=== PATIENT | female | born 1935 | race Caucasian/White ===

== ENCOUNTER 2016-12-15 13:48 | Inpatient (IN) | payer OTHER ==
[~2016-12-15] VITALS: Ht 157.5 cm; Wt 64.5 kg
[~2016-12-15 13:48] MED LIST: ACETAMINOPHEN325 M3 PO; ATIVAN0.5 MG PO; Ambien PO; B-121000 MC2 PO; BISAC-EVAC10 MG PR; CALCIUM 600 +1 EAC9 PO; CALTRATE 6001 TABLE2 PO; CARBIDOPA/LEVO1 EACH PO; CELEBREX200 MG PO; COLACE100 MG PO; CONSTULOSE10 GM/15 M PO; Caltrate 600/400 PO; Colace PO; D5W100 ML IV; Ecotrin PO; FIBER THERAPY0.52 GM PO; FLEET ENEMA-AD118 ML PR; FLEXERIL10 MG PO; Flexeril PO; GABAPENTIN300 MG PO; KEFLEX500 MG PO; LIDODERM 5% P1 PATCH TD; MILK OF MAGN PO; MIRALAX17 GM PO; NACL IV; NAPROXEN500 MG PO; Neurontin PO; OCUVITE TABLET1 EACH PO; OCUVITE1 TABLET PO; OMEPRAZOLE40 M1 PO; OXYBUTYNIN CHLOR5 M1 PO; Ocuvite Tablet PO; PHENERGAN25 MG PR; PRILOSEC40 MG PO; PROMETHAZINE HC25 M1 PO; PriLOSEC PO; RIVASTIGMINE1 EACH TD; SALINE NASAL14.1 GM TP; SENNA PLUS TAB1 EACH PO; SENOKOT S,PE1 TABLET PO; SERTRALINE HCL100 MG PO; SERTRALINE HCL50 MG PO; SINEMET 25-1001 EACH PO; Slow Fe PO; TRAMADOL HCL50 MG PO; Tylenol Regular Stre PO; ULTRAM50 MG PO; Ultram PO; VALIUM2 MG PO; Vicodin,Norco 5/325 PO; Vitamin B-12 PO; ZANAFLEX4 MG PO; ZOFRAN4 MG PO; ZOLOFT50 MG PO; [UNRECOGNIZED DRUG - OTHER] IV
[2016-12-15 15:21] LABS: EOSINOPHIL (%) 0.9 % (0-5); EOSINOPHIL COUNT 0.1 K/uL (0-0.3); HEMATOCRIT 38.9 % (36.0-46.0); IMMATURE GRANULOCYTE (%) 0.3 % (0.0-0.7); INSTRUMENT ABS NEUTROPHIL CT 6.1 K/uL; LYMPHOCYTE COUNT 1.2 K/uL (1.0-2.8); MCH 30.7 PG (29.0-34.0); MCHC 31.9 G/DL (30.0-36.0); MCV 96.3 FL (83-99); MEAN PLAT.VOLUME 9.8 uM^3 (9.5-12.4); MONOCYTE (%) 6.5 % (3-12); MONOCYTE COUNT 0.5 K/uL (0-0.8); NEUTROPHIL (%) 77.4 % (45-76); NEUTROPHIL COUNT 6.1 K/uL (1.8-6.4); PLATELET COUNT 180 K/uL (156-360); RBC DIS.WIDTH-CV 13.3 % (11.8-14.6); RBC DIS.WIDTH-SD 47.4 % (39-53); RED BLOOD COUNT 4.04 M/uL (3.80-5.20); WHITE BLOOD COUNT 7.9 K/uL (4.1-10.2)
[2016-12-15 15:29] LABS: CHLORIDE 108 mEq/L (99-109); POTASSIUM 4.2 mEq/L (3.7-5.4); SODIUM 142 mEq/L (136-147)
[2016-12-15 15:31] LABS: GLUCOSE 107 mg/dL (70-99)
[2016-12-15 15:32] LABS: ANION GAP 8 MEQ/L (2-14)
[2016-12-15 15:34] LABS: GFR ESTIMATE (CALCULATED) > 59 mL/min/
[2016-12-15 15:35] LABS: UREA NITROGEN (BUN) 19 mg/dL (9-23)
[2016-12-15] MEDS ORDERED: OCUVITE TABLET1 EACH PO (20:34)
[2016-12-15] MEDS ORDERED: NEOMYCIN-POLYMY10 M1 RIGHT EAR (20:39)
[2016-12-15] MEDS ORDERED: NEURONTIN300 MG PO (20:41)
[2016-12-15] MEDS ORDERED: DULCOLAX10 MG PR (20:44)
[2016-12-15] MEDS ORDERED: MIRALAX17 GM PO (20:45)
[2016-12-15 22:51] VITALS: BP 123/65
[2016-12-16 04:03] VITALS: BP 103/56
[2016-12-16 07:07] LABS: HEMATOCRIT 36.3 % (36.0-46.0); MCH 30.3 PG (29.0-34.0); MCV 94.8 FL (83-99); MEAN PLAT.VOLUME 10.2 uM^3 (9.5-12.4); PLATELET COUNT 175 K/uL (156-360); RBC DIS.WIDTH-CV 13.4 % (11.8-14.6); RBC DIS.WIDTH-SD 47.5 % (39-53); RED BLOOD COUNT 3.83 M/uL (3.80-5.20)
[2016-12-16 07:18] VITALS: BP 102/55
[2016-12-16 07:29] LABS: ANION GAP 7 MEQ/L (2-14); CHLORIDE 108 MEQ/L (99-109); GFR ESTIMATE (CALCULATED) > 59 mL/min/; GLUCOSE 92 mg/dL (70-99); POTASSIUM 3.7 MEQ/L (3.7-5.4); SAMPLE HEMOLYSIS CHECK 0; SAMPLE ICTERIC CHECK 0; SAMPLE LIPEMIA CHECK 0; SODIUM 142 MEQ/L (136-147); UREA NITROGEN (BUN) 17 mg/dL (9-23)
[2016-12-16 15:57] VITALS: BP 116/67
[2016-12-16 19:32] VITALS: BP 127/69
[2016-12-16 23:39] VITALS: BP 140/75
[2016-12-17] VITALS: BP 124/65
[2016-12-17 03:40] VITALS: BP 132/70
[2016-12-17 07:01] LABS: EOSINOPHIL COUNT 0.1 K/uL (0-0.3); HEMATOCRIT 35.4 % (36.0-46.0); IMMATURE GRANULOCYTE (%) 0.4 % (0.0-0.7); INSTRUMENT ABS NEUTROPHIL CT 3.3 K/uL; LYMPHOCYTE COUNT 1.1 K/uL (1.0-2.8); MCH 30.7 PG (29.0-34.0); MCHC 32.5 G/DL (30.0-36.0); MCV 94.4 FL (83-99); MONOCYTE (%) 7.1 % (3-12); MONOCYTE COUNT 0.4 K/uL (0-0.8); NEUTROPHIL (%) 67.2 % (45-76); NEUTROPHIL COUNT 3.3 K/uL (1.8-6.4); PLATELET COUNT 169 K/uL (156-360); RBC DIS.WIDTH-CV 13.1 % (11.8-14.6); RBC DIS.WIDTH-SD 45.7 % (39-53); RED BLOOD COUNT 3.75 M/uL (3.80-5.20); WHITE BLOOD COUNT 4.9 K/uL (4.1-10.2)
[2016-12-17 07:27] LABS: ANION GAP 8 MEQ/L (2-14); CHLORIDE 107 MEQ/L (99-109); GFR ESTIMATE (CALCULATED) > 59 mL/min/; GLUCOSE 91 mg/dL (70-99); POTASSIUM 3.8 MEQ/L (3.7-5.4); SAMPLE HEMOLYSIS CHECK 0; SAMPLE ICTERIC CHECK 0; SAMPLE LIPEMIA CHECK 0; SODIUM 141 MEQ/L (136-147); UREA NITROGEN (BUN) 16 mg/dL (9-23)
[2016-12-17 07:50] VITALS: BP 140/69
[2016-12-17 15:40] VITALS: BP 147/71
[2016-12-17 17:27] LABS: METH RESISTANT S AUREUS PCR NEGATIVE (NEGATIVE)
[2016-12-17 17:36] LABS: PROBE CHECK PASS; SPECIMEN PROCESSING CONTROL PASS
[2016-12-18 07:17] VITALS: BP 130/66
[2016-12-18] MEDS ORDERED: KEFLEX500 MG PO (11:55)
== END 2016-12-18 15:58 | DRG 603 ==
LOC: EME 13:48 → 2EAST 20:34 → EDOF 20:34 → ENRESERV 20:40 → 2EAST 22:38
PROVIDERS: Emergency Medicine; Hospitalist; Internal Medicine Infectious Disease; Student in an Organized Health Care Education/Training Program
DX: L03.211 Cellulitis of face (principal); L03.213 Periorbital cellulitis; J32.0 Chronic maxillary sinusitis; G20 Parkinson's disease; G62.9 Polyneuropathy, unspecified; K21.9 Gastro-esophageal reflux disease without esophagitis; F41.9 Anxiety disorder, unspecified; F32.9 Major depressive disorder, single episode, unspecified; M19.90 Unspecified osteoarthritis, unspecified site; F03.90 Unspecified dementia, unspecified severity, without behavioral disturbance, psychotic disturbance, mood disturbance, and anxiety; H35.30 Unspecified macular degeneration; Z96.651 Presence of right artificial knee joint
CPT/HCPCS: 70487; 80048; 82306; 82607; 84443; 85025; 85027; 85651; 87641; 97530 GP; 99281; 99285; J0696; J1644; J7030; J7050